=== PATIENT | male | born 1985 | race Caucasian/White ===

== ENCOUNTER 2017-04-17 01:13 | Inpatient (IN) | payer BC ==
[2017-04-17] MEDS ORDERED: NORMAL SALINE 1000 ML 1,000 ML IV ONE ×2 (01:57→03:10)
[2017-04-17] MEDS ORDERED: LORAZEPAM INJ 2 MG/1 ML VIAL IV ONE ×2 (02:01→03:08)
--- NOTE | 2017-04-17 02:43 | RADIOLOGY REPORT (SQ) ---
EXAM DESCRIPTION: CT HEAD WITHOUT COMPLETED DATE/TIME: 04/17/2017 2:29 am REASON FOR STUDY: headache, altered mental state COMPARISON: None. TECHNIQUE: Axial images acquired through the brain without intravenous contrast. Images reviewed wi th bone, brain and subdural windows. Images stored on PACS. All CT scanners at this facility use dose modulation, iterative reconstruction, and/or weight based d osing when appropriate to reduce radiation dose to as low as reasonably achievable (ALARA). [facility]: Dose Right [facility]: CareDose [facility]: Dose Right [facility]: Teradose 4D [facility]: Smart SSEV RADIATION DOSE: Up-to-date CT equipment and radiation dose reduction techniques were employed. CTDIv ol: 55.3 mGy. DLP: 996 mGy-cm. mGy. LIMITATIONS: None. FINDINGS: VENTRICLES: Normal size and contour. CEREBRUM: No masses. No hemorrhage. No midline shift. Normal duarte/white matter differentiation. N o evidence for acute infarction. CEREBELLUM: No masses. No hemorrhage. No alteration of density. No evidence for acute infarction. EXTRAAXIAL SPACES: No fluid collections. No masses. ORBITS AND GLOBE: No intra- or extraconal masses. Normal contour of globe without masses. CALVARIUM: No fracture. PARANASAL SINUSES: No fluid or mucosal thickening. SOFT TISSUES: No mass or hematoma. OTHER: No other significant finding. IMPRESSION: NORMAL BRAIN CT WITHOUT CONTRAST. TECHNICAL DOCUMENTATION: JOB ID: [id number] Quality ID # [id number]: Final reports with documentation of one or more dose reduction techniques (e.g., Au tomated exposure control, adjustment of the mA and/or kV according to patient size, use of iterative reconstruction technique) 2010 [employer]- All Rights Reserved
[2017-04-17 02:44] LABS: ALANINE AMINOTRANSFERASE 43 U/L (21-72); ALBUMIN 4.7 g/dL (3.5-5.0); ALKALINE PHOSPHATASE 83 U/L (38-126); ANION GAP 16 (5-19); ASPARTATE AMINO TRANSFERASE 31 U/L (17-59); BILIRUBIN,DIRECT 0.4 mg/dL (0.0-0.4); BILIRUBIN,TOTAL 0.5 mg/dL (0.2-1.3); BLOOD UREA NITROGEN 19 mg/dL (7-20); CALCIUM 9.6 mg/dL (8.4-10.2); CARBON DIOXIDE 25 mmol/L (22-30); CHLORIDE 102 mmol/L (98-107); CREATININE RESULT 1.52 mg/dL (0.52-1.25); GLUCOSE 150 mg/dL (75-110); POTASSIUM 3.7 mmol/L (3.6-5.0); SODIUM 142.5 mmol/L (137-145); TOTAL PROTEIN 7.4 g/dL (6.3-8.2)
[2017-04-17 02:45] LABS: ALCOHOL < 10 mg/dL (NONE DETECTED)
[2017-04-17 03:14] LABS: ABSOLUTE LYMPHOCYTES (AUTO) 2.7 10^3/uL (0.5-4.7); ABSOLUTE MONOCYTES (AUTO) 0.7 10^3/uL (0.1-1.4); ABSOLUTE NEUT (AUTO) 6.6 10^3/uL (1.7-8.2); BASOPHILS % (AUTO) 0.2 % (0-2); HEMATOCRIT 47.7 % (37.9-51.0); HEMOGLOBIN 16.2 g/dL (13.5-17.0); HGB HCT DIFFERENCE 0.9; LYMPHOCYTES % (AUTO) 26.8 % (13-45); MEAN CORPUSCULAR HEMOGLOBIN 28.7 pg (27.0-33.4); MEAN CORPUSCULAR VOLUME 84 fl (80-97); MONOCYTES % (AUTO) 7.3 % (3-13); RED BLOOD COUNT 5.65 10^6/uL (4.35-5.55); RED CELL DISTRIBUTION WIDTH 12.6 % (11.5-14.0); SEGMENTED NEUTROPHILS % (AUTO) 65.7 % (42-78)
--- NOTE | 2017-04-17 04:14 | ER Document Report ---
ED General - General Chief Complaint: Altered Mental Status Stated Complaint: AMS Time Seen by Provider: 04/17/17 01:40 Mode of Arrival: Ambulatory Information source: Patient, Parent Cannot obtain history due to: Altered mental status TRAVEL OUTSIDE OF THE [place] IN LAST 30 DAYS: No - HPI Notes: Patient is a 32-year-old male presents emergency department with report that he previously was hooked on narcotic pain medications, then was switched to Suboxone about 3 years ago, more recently switched to Butrans patch, which he abruptly stopped from a 10 mg patch 1 week ago to nothing instead of starting the recommended 5 mg patch. the patient also cut back on his Klonopin dosing, but admits to taking additional Phenergan up to 4 tablets at a time to try to control some of his symptoms. After stopping the Butrans patch, the patient had someVomiting and diarrhea, but this is since resolved. Patient denies suicidal or homicidal ideation. Family became concerned that he was acting appropriately and they brought him in for evaluation. The patient has active hallucinations and cannot control his flight of ideas and nonsensical speech. Patient denies chest pain or shortness of breath or abdominal pain or nausea, but he admits to previous headache. - Related Data Allergies/Adverse Reactions: No Known Allergies Allergy (Unverified 03/18/15 08:03) Past Medical History - Social History Smoking Status: Never Smoker Frequency of alcohol use: None Drug Abuse: Prescription drugs Lives with: Alone Family History: Reviewed & Not Pertinent - Past Medical History Cardiac Medical History: Reports: Hx Hypertension Renal/ Medical History: Denies: Hx Peritoneal Dialysis - Immunizations Hx Diphtheria, Pertussis, Tetanus Vaccination: No Review of Systems - Review of Systems Notes: REVIEW OF SYSTEMS: CONSTITUTIONAL : Denies fever, chills, or sweats. Denies recent illness. EENT: Denies eye, ear, throat, or mouth pain or symptoms. Denies nasal or sinus congestion or discharge. Denies throat, tongue, or mouth swelling or difficulty swallowing. CARDIOVASCULAR: Denies chest pain. Denies palpitations or racing or irregular heart beat. Denies ankle edema. RESPIRATORY: Denies cough, cold, or chest congestion. Denies shortness of breath, difficulty breathing, or wheezing. GASTROINTESTINAL: Denies abdominal pain or distention. Denies blood in vomitus , stools, or per rectum. Denies black, tarry stools. Denies constipation. GENITOURINARY: Denies difficulty urinating, painful urination, burning, frequency, blood in urine, or discharge. MUSCULOSKELETAL: Denies back or neck pain or stiffness. Denies joint pain or swelling. SKIN: Denies rash, lesions or sores. HEMATOLOGIC : Denies easy bruising or bleeding. LYMPHATIC: Denies swollen, enlarged glands. NEUROLOGICAL: Denies passing out or loss of consciousness. Denies weakness or paralysis or loss of use of either side. Denies problems with gait or speech. Denies sensory loss, numbness, or tingling. Denies seizures. Reports prior headache, currently denies any headache. PSYCHIATRIC: Denies anxiety or stress. Denies depression, suicidal ideation, or homicidal ideation. ALL OTHER SYSTEMS REVIEWED AND NEGATIVE. Dictation was performed using [employer] voice recognition software Physical Exam - Vital signs Vitals: Resp Pulse Ox 11 L 98 04/17/17 01:25 04/17/17 01:25 - Notes Notes: PHYSICAL EXAMINATION: GENERAL:, Appears to be responding to internal stimuli. But slightly dilated disoriented HEAD: Atraumatic, normocephalic. EYES: Pupils equal round and reactive to light going from 5-4 mm with light, extraocular movements intact, sclera anicteric, conjunctiva are normal. ENT: Nares patent, oropharynx clear without exudates. Mucous membranes are very dry. NECK: Normal range of motion, supple without lymphadenopathy. No meningismus. Tachycardic LUNGS: Breath sounds clear to auscultation bilaterally and equal. No wheezes rales or rhonchi. HEART: Rate ranging from 120-145 is depending upon patient is engaged in conversation. ABDOMEN: Soft, nontender, nondistended abdomen. No guarding, no rebound. No masses appreciated. Musculoskeletal: Normal range of motion, no pitting or edema. No cyanosis. NEUROLOGICAL: Cranial nerves grossly intact. Patient is hyper alert and appears to be responding to some internal stimuli. He answers questions inappropriately and trails off and to unrelated conversation with apparent flight of ideas. Normal sensory, motor exams. Ataxic gait. PSYCH: Some disorientation with flight of ideas. Flat affect overall. SKIN: Warm, Dry, normal turgor, no rashes or lesions noted. Skin is very dry. Course - Re-evaluation Re-evalutation: 04/17/17 04:30 Patient was given 2 mg of IV Ativan and was given 1 L normal saline bolus. His blood pressure improved and his heart rate improved. He still had disorganized thoughts. Head CT was negative, and lab studies showed a slight elevation of creatinine, most likely secondary to dehydration. Additional 2 mg of Ativan was given with additional 1 L normal saline bolus with further improvement. Patient briefly was able to sleep and would awaken with nonsensical talk again. Patient had no neck stiffness or suspicion for meningismus on exam, and findings bit more so with an anticholinergic toxidrome most likely from Phenergan. Also consider narcotic withdrawal state versus benzo withdrawal state, given the very minimal response of 4 mg of IV Ativan over short period of time. Discussion was undertaken with the patient and his family and they were in agreement with admission for further evaluation and management. Discussion was undertaken with Dr. Jones and he agreed to admit the patient. 04/17/17 04:32 - Vital Signs Vital signs: Temp Pulse Resp BP Pulse Ox 14 158/106 H 98 04/17/17 04:08 04/17/17 04:08 04/17/17 04:08 - Laboratory Result Diagrams: 04/17/17 01:28 04/17/17 01:28 Laboratory results interpreted by me: 04/17/17 04/17/17 01:28 01:28 RBC 5.65 H Creatinine 1.52 H Est GFR (Non-Af Amer) 54 L Glucose 150 H Critical Care Note - Critical Care Note Total time excluding time spent on procedures (mins): 45 Discharge - Discharge Clinical Impression: Opioid withdrawal, Benzodiazepine withdrawal, Psychosis, Poisoning by parasympatholytic drug Condition: Stable Disposition: ADMITTED INPATIENT Admitting Provider: Hospitalist Unit Admitted: ICU
[2017-04-17 04:39] LABS: URINE BARBITURATES SCREEN NEGATIVE; URINE METHADONE SCREEN NEGATIVE; URINE OPIATES LOW UNCONFIRMED POSITIVE; URINE PHENCYCLIDINE SCREEN NEGATIVE
[2017-04-17 04:40] LABS: APPEARANCE,URINE CLEAR; BILIRUBIN,URINE NEGATIVE (NEGATIVE); GLUCOSE, URINE NEGATIVE (NEGATIVE); KETONES,URINE NEGATIVE (NEGATIVE); LEUKOCYTE ESTERASE,URINE NEGATIVE (NEGATIVE); NITRITE,URINE NEGATIVE (NEGATIVE); PROTEIN,URINE NEGATIVE (NEGATIVE); URINE SPECIFIC GRAVITY 1.013; UROBILINOGEN,URINE NEGATIVE mg/dL (<2.0)
[2017-04-17] MEDS ORDERED: NORMAL SALINE 1000 ML 1,000 ML IV PRN (05:39)
[2017-04-17] MEDS ORDERED: THIAMINE HCL INJ 200 MG/2 ML VIAL ONE (05:39)
[2017-04-17] MEDS ORDERED: THIAMINE HCL 100 MG in NORMAL SALINE 50 ML IV ONE (05:45)
[2017-04-17] MEDS ORDERED: ENALAPRILAT DIHYDRATE INJ/PF 1.25 MG/1 ML SDV IV PRN (05:56)
[2017-04-17] MEDS ORDERED: POTASSI CL 20 MEQ/50 ML RIDER 20 MEQ/50 ML RTUPB IV ONE (06:00)
[2017-04-17 06:06] LABS: ADD ON TESTING BLD IN LAB ACKNOWLEDGE
[2017-04-17] MEDS ORDERED: PROMETHAZINE HCL 25 MG TABLET PO PRN (06:11)
[2017-04-17 06:16] LABS: CREATINE KINASE 276 U/L (55-170)
[2017-04-17 06:36] LABS: PROTHROMBIN TIME 13.7 SEC (11.4-15.4)
[2017-04-17 06:37] LABS: PARTIAL THROMBOPLASTIN TIME 27.4 SEC (23.5-35.8)
--- NOTE | 2017-04-17 06:50 | PDOC H&P ---
History of Present Illness Admission Date/PCP: 04/17/17 05:22 PCP None Patient complains of: Altered mental status History of Present Illness: PEDRITO JANSEN is a 32 year old male with a history of narcotic addiction, having switched to Suboxone approximately 3 years ago. More recently , changed to Butrans patch. Approximately 1 week ago, instead of continuing his prescribed taper, he stopped with a 10 mg patch, not reducing to the 5 mg patch. Patient also reportedly cut back on his Klonopin dosing. When he developed symptoms of vomiting and diarrhea over the past 72 hours, he reportedly began taking extra Phenergan. Was noted by parents to be quite confused and was brought to the emergency room for further evaluation. Patient has been discussed with emergency room physician who evaluated the patient. Patient is globally disoriented, responding to basic questions with non sequitur flight of ideas, and basically nonsensical speech at times and is able to provide no history whatsoever in terms of acute or chronic events, review of systems, personal habits, family history, etc. parents are present and are somewhat helpful, although their information is limited, since patient does not live with them. No inpatient records available for review. no fever or chills. Mom does state he developed a mild headache over the last day or so, and has had a number of episodes of vomiting and diarrhea over the past 3 days, but the vomiting and diarrhea has been decreasing with time. No further information available this point in time. According to the emergency room physician, patient was noted to be rather tachycardic, into the 130 and 140 range upon arrival, but pulse rate has decreased with treatment, including IV fluid and Ativan. Patient also noted to have hypertensive urgency, with high blood pressure 169/ 117. Laboratory results are listed in [employer] and are reviewed. X-ray summary results are listed below, with full report(s) reviewed. . EKG reviewed. No prior EKG available for comparison. Social history/personal habits: Single. No children. 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 No tobacco use. Occasional alcohol; parents uncertain exactly how much. Reportedly no illicit drug use. No known drug allergies. Home medications initially autopopulated into [id number] may not accurately reflect patient's true medications, dosages, and/or frequencies. food technologist to reconcile medications. Unfortunately, parents not certain of all medications/dosages/frequencies. REVIEW OF SYSTEMS: See history and present illness. No further information available this point in time. PHYSICAL EXAMINATION: 68 kg. Height is not recorded on the chart. 98% saturation on room air. Blood pressure 145/99. Pulse 99 and regular. Respirations are 24 and unlabored. Temperature not recorded on chart; skin feels normothermic. Well-nourished well-developed young male appearing approximately his stated age. Initially awake and alert and fairly anxious, although no val agitation. As my exam was completing, he did become a bit more drowsy. Parents are present at his side. Skin is warm and dry, not flushed. No grossly obvious evidence of rash in areas of skin examined. No subcutaneous nodules palpated. ENT: Hearing grossly normal to normal conversation. Tongue midline on protrusion pink and tacky. No crusting of lips. No matos sign. Eyes: No scleral icterus. Pupils equal and reactive to light at 6 mm. [place] conjunctivae. No raccoon eyes. Neck is supple and nontender to gentle active range of motion and palpation. Midline trachea. No palpable thyroid nodule mass enlargement or tenderness. Lymphatic: No palpable cervical or clavicular nodes. Neck and lymphatic exams limited by patient body habitus. Psychiatric: Not able to be adequately evaluated. See history and present illness. Lungs: Auscultation reveals clear and equal breath sounds bilaterally. No use of accessory respiratory muscles. Cardiovascular: Heart regular rate and rhythm, without gallop murmur or rub. No carotid or abdominal aortic bruits. No ankle or pedal edema. Palpable dorsalis pedis pulses. Abdomen:soft slightly distended nontender with occasional bowel sounds. Unable to adequately evaluate abdomen for masses or organomegaly due to distention. Extremities: Hands and feet are warm and dry. No calf tenderness to compression. No grossly obvious visual evidence of calf swelling. Gentle manipulation of lower extremities fails to reveal any obvious evidence of injury or instability to knees hips or ankles. Neurologic: Moves all 4 extremities grossly normally. Patellar reflexes absent. Absent Babinski. Light touch cannot be adequately evaluated due to his current status. No rigidity. No ankle clonus. No nystagmus. Past Medical History Past Medical History: Information from review of records along with discussion with parents. Cardiac Medical History: Reports: Hypertension Denies: Congestive Heart Failure, DVT, Myocardial Infarction, Hyperlipidema, Pulmonary Embolism Pulmonary Medical History: Denies: Asthma, Chronic Obstructive Pulmonary Disease (COPD), Sleep Apnea EENT Medical History: Denies: Eyes, Ears, Throat Neurological Medical History: Denies: Hemorrhagic CVA, Ischemic CVA, Seizures Endocrine Medical History: Denies: Diabetes Mellitus Type 1, Diabetes Mellitus Type 2, Hyperthyroidism, Hypothyroidism Renal/ Medical History: Reports: None GI Medical History: Reports: Gastroesophageal Reflux Disease - Mild Denies: Cirrhosis, Hepatitis, Peptic Ulcer Disease Musculoskeltal Medical History: Denies: Arthritis Skin Medical History: Reports: None Psychiatric Medical History: Reports: Depression, General Anxiety Disorder, Other - History of narcotic addiction Denies: Alcohol Dependency, Substance Abuse, Tobacco Dependency Hematology: Reports: None Infectious Medical History: Denies: Clostridium Difficile, Hepatitis B, Hepatitis C, Methicillin- Resistant Staph Aureus Past Surgical History Past Surgical History: Reports: Other - [place] teeth extraction Social History Information Source: Parent, Emergency Med Personnel, [facility] Records Smoking Status: Unknown if Ever Smoked Frequency of Alcohol Use: Occasional Drugs: None - per mother. Hx Prescription Drug Abuse: Yes - Advance Directive Resuscitation Status: Full Code Surrogate healthcare decision maker:: Parents Family History Family History: Reviewed & Not Pertinent Parental Family History Reviewed: Yes - Parents are hypertensive Children Family History Reviewed: NA Sibling(s) Family History Reviewed.: Yes - Brother is healthy Medication/Allergy Home Medications: Ergocalciferol (Vitamin D2) [Drisdol 50,000 unit (1.25MG) Capsule] 50,000 units PO PARDO@1000 04/17/17 Sumatriptan Succinate [Imitrex 100 mg Tablet] 100 mg PO DAILYP PRN 04/17/17 Testosterone Cypionate [Depo-Testosterone] 200 mg IM [id number] 04/17/17 Tramadol HCl [Tramadol HCl ER] 300 mg PO QAM 04/17/17 Clonazepam [Klonopin 2 mg Tablet] 2 mg PO Q8HP PRN #0 04/18/17 Gabapentin 400 mg PO Q6HP PRN #30 capsule 04/18/17 Lisinopril 40 mg PO DAILY #30 tablet 04/18/17 Ondansetron HCl [Zofran 4 mg Tablet] 1 tab PO Q8 PRN #30 tablet 04/18/17 Allergies/Adverse Reactions: No Known Allergies Allergy (Unverified 03/18/15 08:03) Physical Exam Vital Signs: Temp Pulse Resp BP Pulse Ox 14 158/106 H 98 04/17/17 04:08 04/17/17 04:08 04/17/17 04:08 Results Impressions: Head CT 04/17/17 01:57 IMPRESSION: NORMAL BRAIN CT WITHOUT CONTRAST. Assessment & Plan - Diagnosis (1) Hypertensive urgency Is this a current diagnosis for this admission?: YesPlan: Gradual blood pressure reduction with as needed enalaprilat. Vital sign parameters listed in chart. (2) Acute encephalopathy Is this a current diagnosis for this admission?: YesPlan: Patient discussed in detail by phone at 6 AM the morning of the fourth with Dr. Haney, on-call sole conforming machine operator at [place] [facility]. She feels his overall clinical picture is likely due to Phenergan abuse, with possibly addition of gabapentin, and/or Klonopin withdrawal. Supportive care recommended at this point in time. She also recommended finding out his previous Klonopin dosage and consider restarting him on this. As needed Ativan. ICU admission, since we're not completely sure exactly what medication he has been taking. IVC papers drawn up. Suicide precautions, until more information is available and patient has been evaluated by psych. Parents aware psychiatric consult is pending. Of note, Dr. Haney did not feel the Butrans patch would be responsible for the positive opiates on his toxicology screen. Knee high SCDs for DVT prophylaxis, along with subcutaneous Lovenox. Impression and plans were discussed with parents, who agree. Discussion with parents prior to my telephone discussion with Dr. Haney of [place] [facility]. Time spent in evaluation and management of patient: 80 critical-care minutes. After my initial evaluation of patient, and after I had left the emergency room and was involved in the care of another patient, I was contacted by patient's emergency room nurse concerning mother's questions about decision to proceed with IVC status. I discussed with mother in layperson's terms by phone rationale for IVC status. She accepted this well. (3) DVT prophylaxis Is this a current diagnosis for this admission?: Yes (4) Substance abuse Is this a current diagnosis for this admission?: Yes - Inpatient Certification Based on my medical assessment, after consideration of the patient's comorbidities, presenting symptoms, or acuity I expect that the services needed warrant INPATIENT care.: Yes I certify that my determination is in accordance with my understanding of Medicare's requirements for reasonable and necessary INPATIENT services [42 CFR 412.3e].: Yes Medical Necessity: Need Close Monitoring Due to Risk of Patient Decompensation, Need For IV Fluids, Need For Continuous Telemetry Monitoring, Risk of Diagnosis Which Will Require Inpatient Eval/Care/Monitoring Post Hospital Care: D/C or Transfer Summary
[2017-04-17 08:13] LABS: ANION GAP 9 (5-19); BLOOD UREA NITROGEN 15 mg/dL (7-20); CALCIUM 8.6 mg/dL (8.4-10.2); CARBON DIOXIDE 25 mmol/L (22-30); CHLORIDE 108 mmol/L (98-107); CREATINE KINASE 197 U/L (55-170); GLUCOSE 80 mg/dL (75-110); POTASSIUM 4.1 mmol/L (3.6-5.0); SODIUM 141.5 mmol/L (137-145)
--- NOTE | 2017-04-17 10:20 | EKG REPORT ---
SEVERITY:- BORDERLINE ECG - SINUS TACHYCARDIA BORDERLINE T ABNORMALITIES, INFERIOR-LATERAL LEADS : Confirmed by: Burt Toscano MD 17-Apr-2017 10:19:50
[2017-04-17] MEDS: ENOXAPARIN SODIUM INJ 40 MG/0.4 ML DISP.SYRIN SUBCUT SCH (11:53)
[2017-04-17] MEDS: NORMAL SALINE 1000 ML 1,000 ML IV PRN ×2 (11:56→20:22)
--- NOTE | 2017-04-17 12:17 | PDOC PROGRESS REPORT ---
Subjective Progress Note for:: 04/17/17 Subjective:: At the time of my exam the patient was not responsive. By 12:00 he was awake alert asking for food. Physical Exam Vital Signs: Temp Pulse Resp BP Pulse Ox 98.2 F 83 12 109/77 97 04/17/17 08:00 04/17/17 08:00 04/17/17 10:41 04/17/17 10:41 04/17/17 10:41 Intake & Output 04/16/17 04/17/17 04/18/17 06:59 06:59 06:59 Weight 96 kg General appearance: PRESENT: no acute distress Eye exam: PRESENT: conjunctiva pink. ABSENT: scleral icterus Mouth exam: PRESENT: moist, tongue midline Neck exam: ABSENT: JVD Respiratory exam: PRESENT: clear to auscultation leigh ann. ABSENT: rales, rhonchi, wheezes Cardiovascular exam: PRESENT: RRR. ABSENT: diastolic murmur, rubs, systolic murmur GI/Abdominal exam: PRESENT: normal bowel sounds, soft. ABSENT: distended, guarding, mass, organolmegaly, rebound, tenderness Extremities exam: ABSENT: calf tenderness, clubbing, pedal edema Neurological exam: ABSENT: awake Psychiatric exam: PRESENT: other - Unable to assess secondary to sedation Skin exam: PRESENT: dry, intact, warm. ABSENT: cyanosis, rash Results Laboratory Results: 04/17/17 07:44 04/17/17 07:44 Sodium 141.5 Potassium 4.1 Chloride 108 H Carbon Dioxide 25 Anion Gap 9 BUN 15 Creatinine 1.20 Est GFR ( Amer) > 60 Est GFR (Non-Af Amer) > 60 Glucose 80 Calcium 8.6 04/17/17 07:44 Creatine Kinase 197 H Impressions: Head CT 04/17/17 01:57 IMPRESSION: NORMAL BRAIN CT WITHOUT CONTRAST. Assessment & Plan - Diagnosis (1) Acute encephalopathy Is this a current diagnosis for this admission?: YesPlan: Most likely was secondary to medications. The patient had taken Klonopin as well as Phenergan. When I saw him at 8 AM he was unresponsive however by lunchtime he was awake asking for food. We will continue to monitor overnight and hopefully be able to discharge home tomorrow if he is no longer at risk to himself (2) Hypertensive urgency Is this a current diagnosis for this admission?: YesPlan: His blood pressures have improved. (3) Substance abuse Is this a current diagnosis for this admission?: YesPlan: The patient has been trying to wean off of narcotics. - Time Time Spent with patient: 25-34 minutes - Inpatient Certification Medical Necessity: Need Close Monitoring Due to Risk of Patient Decompensation
[2017-04-17] MEDS: LORAZEPAM INJ 2 MG/1 ML VIAL IV PRN ×3 (13:03→23:15)
--- NOTE | 2017-04-17 17:13 | ER Document Report ---
ED Psych Disorder / Suicide - General Chief Complaint: Altered Mental Status Stated Complaint: AMS Time Seen by Provider: 04/17/17 01:40 Mode of Arrival: Ambulatory Information source: Patient, Parent, [facility] Records Notes: Patient presents as a 32 year old male for disorientation, hallucinations, confusion, bizarre behavior. He arrived via EMS and LE. Patient was found at a carry out [employer] restaurant presenting the above symptoms and employee notified law enforcement. LE spoke with patient's parents and had EMS transport patient to the hospital for evaluation. Patient reports that he was at the grocery store earlier that same evening and saw some "unruly people" in the store purchasing alcohol so he exited the store and followed "the people " to see if they were drunk driving at which point his stated plan was to call the police. Patient states that he found himself in a "non desirable neighborhood" while following the car, then he reports that he apparently made a wrong turn ending up in even a worse neighborhood. Patient reports that the next thing he remembers was pacing in the parking lot of a pizza place. He states then he remembers being in the hospital. He has a positive toxicology for opioids. Patient admits to having an opioid use disorder originating from a back injury seven years ago. He state that he was on buphrenorphine for three years and has discontinued the medication approximately two weeks ago. He is also prescribed two different benzodiazipines for anxiety. Patient denies using any illicit substances and speculates that his disorientation may have come from post withdrawal. Patient presents as cooperative at times and defensive at times. Patient spent considerable time engaging in conversation with this promotion writer that may convince his mother that he has not recently used substances. Patient aggressively denies opioids in his system and requested being re-tested. Patient thought process appears goal directed. Patient has brief periods of disorientation and flight of ideas requiring redirection. Collateral: Mother present in ICU for a portion of the assessment. She is concerned that the patient was in the neighborhood to obtain drugs. He has a history of substance use disorders. Impression/Plan: Patient is cleared from psychiatric services. Patient has likely suffered from hallucinations and delusions /bizarre behavior as a result of recent substance use and / or withdrawal. Patient's story of following strangers to see if they were intoxicated, then becoming lost in a bad neighborhood is seemingly fantastical, not as a delusion, rather as an explanation as to his whereabouts when encountered by LE. Patient is currently engaged with substance abuse services managing his suboxone, benzodiazipines, and counseling. He would like to remain with his current provider. He was provided crisis phone numbers and instructions on their use. Consulted with Dr. Keith regarding the care and management of the patient. Diagnosis: Substance or medication induced psychotic disorder Opioid use disorder severe, on replacement therapy Patient is discharged from psychiatric services, pending medical clearance, unless reevaluation ordered. TRAVEL OUTSIDE OF THE [place] IN LAST 30 DAYS: No - HPI Patient complains to provider of: Bizarre behavior, Hallucinating Onset: Just prior to arrival Onset was: Cannot confirm Suicide Risk Factors: Depressed, Substance abuse Associated symptoms: Flat affect, Flight of ideas, Restlessness - Related Data Allergies/Adverse Reactions: No Known Allergies Allergy (Unverified 03/18/15 08:03) Home Medications: Current Home Medications Buprenorphine [Butrans] 1 patch TOP PARDO@1000 04/17/17 [History] Clonazepam [Klonopin 2 mg Tablet] 2 mg PO Q8HP PRN 04/17/17 [History] Ergocalciferol (Vitamin D2) [Drisdol 50,000 unit (1.25MG) Capsule] 50,000 units PO PARDO@1000 04/17/17 [History] No Home Medications 04/17/17 [History] Promethazine HCl 50 mg PO Q6HP PRN 04/17/17 [History] Sumatriptan Succinate [Imitrex 100 mg Tablet] 100 mg PO DAILYP PRN 04/17/17 [ History] Temazepam [Restoril] 30 mg PO HSP PRN 04/17/17 [History] Testosterone Cypionate [Depo-Testosterone] 200 mg IM [id number] 04/17/17 [History] Tramadol HCl [Tramadol HCl ER] 300 mg PO QAM 04/17/17 [History] Past Medical History - General Information source: Patient, Parent - Social History Smoking Status: Never Smoker Frequency of alcohol use: None Drug Abuse: Prescription drugs Lives with: Alone Family History: Reviewed & Not Pertinent - Past Medical History Cardiac Medical History: Reports: Hx Hypertension Denies: Hx Congestive Heart Failure, Hx DVT, Hx Heart Attack, Hx Hypercholesterolemia, Hx Pulmonary Embolism Pulmonary Medical History: Denies: Hx Asthma, Hx COPD, Hx Sleep Apnea EENT Medical History: Denies: Eyes, Ears, Throat Neurological Medical History: Denies: Hx Seizures Endocrine Medical History: Denies: Hx Diabetes Mellitus Type 1, Hx Diabetes Mellitus Type 2, Hx Hyperthyroidism, Hx Hypothyroidism Renal/ Medical History: Reports: None. Denies: Hx Peritoneal Dialysis GI Medical History: Reports: Hx Gastroesophageal Reflux Disease - Mild. Denies : Hx Cirrhosis, Hx Hepatitis Musculoskeltal Medical History: Denies Hx Arthritis Skin Medical History: Reports None Psychiatric Medical History: Reports: Hx Depression, Other - History of narcotic addiction Infectious Medical History: Denies: Hx C-Diff, Hx Hepatitis, Hx MRSA Past Surgical History: Reports: Other - [place] teeth extraction - Immunizations Hx Diphtheria, Pertussis, Tetanus Vaccination: No History of Pneumococcal Vaccine: Unknown Review of Systems - Review of Systems Neurological/Psychological: Confusion, Suicidal ideation - denied Physical Exam - Vital signs Vitals: Resp Pulse Ox 11 L 98 04/17/17 01:25 04/17/17 01:25 Course - Vital Signs Vital signs: Temp Pulse Resp BP Pulse Ox 97.5 F 79 16 130/91 H 99 04/17/17 15:16 04/17/17 15:16 04/17/17 15:16 04/17/17 15:16 04/17/17 15:16 - Laboratory Result Diagrams: 04/17/17 01:28 04/17/17 07:44 Laboratory results interpreted by me: 04/17/17 04/17/17 04/17/17 01:28 01:28 01:28 RBC 5.65 H Creatinine 1.52 H Est GFR (Non-Af Amer) 54 L Glucose 150 H Creatine Kinase 276 H Salicylates < 1.0 L Acetaminophen < 10 L Discharge - Discharge Clinical Impression: Narcotic withdrawal, Benzodiazepine withdrawal, Psychosis, Anticholinergic syndrome, Substance abuse Condition: Stable Disposition: ADMITTED INPATIENT
--- NOTE | 2017-04-17 20:15 | EKG REPORT ---
SEVERITY:- BORDERLINE ECG - SINUS TACHYCARDIA BORDERLINE T ABNORMALITIES, ANTERIOR LEADS : Confirmed by: Burt Toscano MD 17-Apr-2017 20:14:40
[2017-04-18] MEDS: NORMAL SALINE 1000 ML 1,000 ML IV PRN ×2 (01:22→06:01)
[2017-04-18] MEDS: LORAZEPAM INJ 2 MG/1 ML VIAL IV PRN ×3 (01:22→08:51)
[2017-04-18 06:56] LABS: ABSOLUTE LYMPHOCYTES (AUTO) 3.3 10^3/uL (0.5-4.7); ABSOLUTE MONOCYTES (AUTO) 0.7 10^3/uL (0.1-1.4); ABSOLUTE NEUT (AUTO) 2.6 10^3/uL (1.7-8.2); BASOPHILS % (AUTO) 0.5 % (0-2); EOSINOPHILS % (AUTO) 0.1 % (0-6); HEMATOCRIT 40.4 % (37.9-51.0); LYMPHOCYTES % (AUTO) 50.4 % (13-45); MEAN CORPUSCULAR HEMOGLOBIN 28.8 pg (27.0-33.4); MEAN CORPUSCULAR HGB CONC 34.3 g/dL (32.0-36.0); MEAN CORPUSCULAR VOLUME 84 fl (80-97); MONOCYTES % (AUTO) 9.9 % (3-13); RED BLOOD COUNT 4.82 10^6/uL (4.35-5.55); RED CELL DISTRIBUTION WIDTH 12.8 % (11.5-14.0); SEGMENTED NEUTROPHILS % (AUTO) 39.1 % (42-78); WHITE BLOOD COUNT 6.5 10^3/uL (4.0-10.5)
[2017-04-18 07:05] LABS: HEMOGLOBIN 13.8 g/dL (13.5-17.0)
[2017-04-18 07:10] LABS: ALANINE AMINOTRANSFERASE 36 U/L (21-72); ALBUMIN 3.8 g/dL (3.5-5.0); ALKALINE PHOSPHATASE 80 U/L (38-126); ANION GAP 9 (5-19); ASPARTATE AMINO TRANSFERASE 22 U/L (17-59); BILIRUBIN,DIRECT 0.3 mg/dL (0.0-0.4); BILIRUBIN,TOTAL 0.3 mg/dL (0.2-1.3); BLOOD UREA NITROGEN 12 mg/dL (7-20); CARBON DIOXIDE 25 mmol/L (22-30); CHLORIDE 110 mmol/L (98-107); GLUCOSE 74 mg/dL (75-110); POTASSIUM 4.1 mmol/L (3.6-5.0); SODIUM 143.6 mmol/L (137-145); TOTAL PROTEIN 6.4 g/dL (6.3-8.2)
[2017-04-18] MEDS: ENOXAPARIN SODIUM INJ 40 MG/0.4 ML DISP.SYRIN SUBCUT SCH (09:23)
[2017-04-18 10:46] VITALS: BP 155/82
--- NOTE | 2017-04-18 14:44 | PDOC DISCHARGE SUMMARY ---
General - Admit/Disc Date/PCP Admission Date/Primary Care Provider: 04/17/17 05:27 Discharge Date: 04/18/17 - Discharge Diagnosis (1) Acute encephalopathy Is this a current diagnosis for this admission?: YesSummary: Likely secondary to medications possibly Phenergan interacting with Klonopin. (2) Hypertensive urgency Is this a current diagnosis for this admission?: Yes (3) Substance abuse Is this a current diagnosis for this admission?: Yes - Additional Information Resuscitation Status: Full Code Discharge Diet: Regular Discharge Activity: Activity As Tolerated Home Medications: Ergocalciferol (Vitamin D2) [Drisdol 50,000 unit (1.25MG) Capsule] 50,000 units PO PARDO@1000 04/17/17 Sumatriptan Succinate [Imitrex 100 mg Tablet] 100 mg PO DAILYP PRN 04/17/17 Testosterone Cypionate [Depo-Testosterone] 200 mg IM [id number] 04/17/17 Tramadol HCl [Tramadol HCl ER] 300 mg PO QAM 04/17/17 Clonazepam [Klonopin 2 mg Tablet] 2 mg PO Q8HP PRN #0 04/18/17 Gabapentin 400 mg PO Q6HP PRN #30 capsule 04/18/17 Lisinopril 40 mg PO DAILY #30 tablet 04/18/17 Ondansetron HCl [Zofran 4 mg Tablet] 1 tab PO Q8 PRN #30 tablet 04/18/17 History of Present Illness History of Present Illness: PEDRITO JANSEN is a 32 year old male history of narcotic addiction who was on Suboxone started 3 years ago. The patient recently switched to a Butrans patch. One week prior to presentation the patient stopped his 10 mg patch and also cut back on his Klonopin. Over the 72 hours prior to admission he began to develop vomiting and diarrhea and took extra Phenergan. The patient was confused and brought into the emergency room is admitted with encephalopathy. Hospital Course Hospital Course: 32-year-old male who was admitted with encephalopathy. [place] most likely be secondary to medication in the form of Klonopin and Phenergan. The patient by his report had been off of his Butrans patch for 1 week prior to presentation. He developed nausea and vomiting and took extra Phenergan. Patient was initially admitted into the intensive care unit for close observation and he was IVC'd. Patient overnight had improvement in his mental status and was back to normal. I discussed with the patient the risk of mixing his medications. I have recommended that the patient avoid all narcotics and wean off of his Klonopin. I also have recommended that he stop taking Phenergan for nausea and use Zofran because there would be less problems with interactions. I have recommended that he cut his Klonopin dose to 2 mg q. 83 days then decrease to 1 mg q. 83 days then decrease to 0.5 mg every 8 hours. I have asked him to follow-up with his primary care doctor to consider further weaning down from that dose and hopefully get off of the Klonopin altogether. I discussed with the patient the possibility of using antipsychotics for his anxiety as there would be less problems with addiction. Has been using clonidine as needed for his blood pressure as well as withdrawal symptoms and I have asked him to stop using clonidine altogether and just take lisinopril for blood pressure. Physical Exam Vital Signs: Temp Pulse Resp BP Pulse Ox 97.7 F 64 14 155/82 H 100 04/18/17 10:42 04/18/17 10:42 04/18/17 10:42 04/18/17 10:42 04/18/17 10:42 Intake & Output 04/17/17 04/18/17 04/19/17 06:59 06:59 06:59 Intake Total 4374 Output Total 2675 Balance 1699 Weight 95.6 kg General appearance: PRESENT: no acute distress Eye exam: PRESENT: conjunctiva pink. ABSENT: scleral icterus Mouth exam: PRESENT: moist, tongue midline Neck exam: ABSENT: JVD Respiratory exam: PRESENT: clear to auscultation leigh ann. ABSENT: rales, rhonchi, wheezes Cardiovascular exam: PRESENT: RRR. ABSENT: diastolic murmur, rubs, systolic murmur GI/Abdominal exam: PRESENT: normal bowel sounds, soft. ABSENT: distended, guarding, mass, organolmegaly, rebound, tenderness Extremities exam: ABSENT: calf tenderness, clubbing, pedal edema Neurological exam: PRESENT: alert, awake, oriented to person, oriented to place , oriented to time, oriented to situation, CN II-XII grossly intact. ABSENT: motor sensory deficit Psychiatric exam: PRESENT: appropriate affect Skin exam: PRESENT: dry, intact, warm. ABSENT: cyanosis, rash Results Laboratory Results: 04/18/17 06:34 04/18/17 06:34 04/18/17 04/18/17 06:34 06:34 WBC 6.5 RBC 4.82 Hgb 13.8 D Hct 40.4 MCV 84 MCH 28.8 MCHC 34.3 RDW 12.8 Plt Count 184 Seg Neutrophils % 39.1 L Lymphocytes % 50.4 H Monocytes % 9.9 Eosinophils % 0.1 Basophils % 0.5 Absolute Neutrophils 2.6 Absolute Lymphocytes 3.3 Absolute Monocytes 0.7 Absolute Eosinophils 0.0 Absolute Basophils 0.0 Sodium 143.6 Potassium 4.1 Chloride 110 H Carbon Dioxide 25 Anion Gap 9 BUN 12 Creatinine 1.10 Est GFR ( Amer) > 60 Est GFR (Non-Af Amer) > 60 Glucose 74 L Calcium 9.0 Total Bilirubin 0.3 AST 22 ALT 36 Alkaline Phosphatase 80 Total Protein 6.4 Albumin 3.8 04/17/17 07:44 Creatine Kinase 197 H Impressions: Head CT 04/17/17 01:57 IMPRESSION: NORMAL BRAIN CT WITHOUT CONTRAST. Qualifiers PATEINT BEING DISCHARGED WITH ANY OF THE FOLLOWING DIAGNOSIS?: No Plan Discharge Plan: Discharged to home. Follow up with his primary care doctor in 2 weeks. Time Spent: Greater than 30 Minutes
== END 2017-04-18 11:30 | disposition home or self-care (01) | DRG 917 ==
LOC: ER 01:13 → EH 05:22 → UNDOADMIN 05:22 → EH 05:27 → ICU 07:10 → 3W 22:51
PROVIDERS: ADMIT Family Medicine; ATTEND Family Medicine
DX: T42.4X1A Poisoning by benzodiazepines, accidental (unintentional), initial encounter (principal); G92 Toxic encephalopathy; T42.6X1A Poisoning by other antiepileptic and sedative-hypnotic drugs, accidental (unintentional), initial encounter; I16.0 Hypertensive urgency; F11.10 Opioid abuse, uncomplicated; F41.9 Anxiety disorder, unspecified; I10 Essential (primary) hypertension; Z79.899 Other long term (current) drug therapy; Y92.481 Parking lot as the place of occurrence of the external cause
CPT/HCPCS: 36415; 70450; 80048; 80053; 80307; 81001; 82550; 83735; 84443; 84484; 85025; 85610; 85730; 93005; 93010; 96374; 96376; 99291; J1650; J2060; J3411; J3480; J7030

== ENCOUNTER → 2017-07-13 | Outpatient (CLI) | payer BC ==
[2017-07-13 18:57] LABS: CHLAM PCR NOT DETECTED (NOT DETECT)
== END ==
LOC: OD 15:42
PROVIDERS: ATTEND Nurse Practitioner Acute Care
DX: R30.0 Dysuria (principal)
CPT/HCPCS: 87491; 87591

== ENCOUNTER 2017-12-10 21:51 | Emergency (ER) | payer SELFPAY ==
--- NOTE | 2017-12-10 22:14 | ER Document Report ---
ED General - General Stated Complaint: ALTERED MENTAL STATUS Time Seen by Provider: 12/10/17 22:05 Notes: Patient is a 32-year-old male that comes by EMS for chief complaint of possible overdose and altered mental status. 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 Patient is prescribed temazepam and Klonopin, mother denied any other home medications at this time. He does have a history of overdose in the past was hospitalized once for this before. Patient denies any alcohol, any recreational drugs, states he did not take more than his prescribed dose of his medications. Patient denies any current complaints other than feeling really tired. TRAVEL OUTSIDE OF THE [place] IN LAST 30 DAYS: No - Related Data Allergies/Adverse Reactions: No Known Allergies Allergy (Unverified 03/18/15 08:03) Past Medical History - General Information source: Patient - Social History Smoking Status: Current Some Day Smoker Frequency of alcohol use: Occasional Drug Abuse: None, Prescription drugs Lives with: Family Family History: Reviewed & Not Pertinent - Past Medical History Cardiac Medical History: Reports: Hx Hypertension Denies: Hx Congestive Heart Failure, Hx DVT, Hx Heart Attack, Hx Hypercholesterolemia, Hx Pulmonary Embolism Pulmonary Medical History: Denies: Hx Asthma, Hx COPD, Hx Sleep Apnea Neurological Medical History: Denies: Hx Seizures Endocrine Medical History: Denies: Hx Diabetes Mellitus Type 1, Hx Diabetes Mellitus Type 2, Hx Hyperthyroidism, Hx Hypothyroidism Renal/ Medical History: Denies: Hx Peritoneal Dialysis GI Medical History: Reports: Hx Gastroesophageal Reflux Disease - Mild. Denies : Hx Cirrhosis, Hx Hepatitis Musculoskeltal Medical History: Denies Hx Arthritis Psychiatric Medical History: Reports: Hx Depression Infectious Medical History: Denies: Hx C-Diff, Hx Hepatitis, Hx MRSA Past Surgical History: Reports: Other - [place] teeth extraction - Immunizations Hx Diphtheria, Pertussis, Tetanus Vaccination: No Review of Systems - Review of Systems Constitutional: See HPI EENT: No symptoms reported Cardiovascular: No symptoms reported Respiratory: No symptoms reported Gastrointestinal: No symptoms reported Genitourinary: No symptoms reported Male Genitourinary: No symptoms reported Musculoskeletal: No symptoms reported Skin: No symptoms reported Hematologic/Lymphatic: No symptoms reported Neurological/Psychological: See HPI Physical Exam - Vital signs Vitals: Temp Pulse Resp BP Pulse Ox 97.3 F 94 16 150/89 H 100 12/10/17 21:52 12/10/17 21:52 12/10/17 21:52 12/10/17 21:52 12/10/17 21:52 Interpretation: Normal - General General appearance: Lethargic In distress: None - HEENT Head: Normocephalic, Atraumatic Eyes: Normal Conjunctiva: Normal Extraocular movements intact: Yes Eyelashes: Normal Pupils: PERRL Mouth/Lips: Normal Mucous membranes: Normal Pharynx: Normal Neck: Normal - Respiratory Respiratory status: No respiratory distress Chest status: Nontender Breath sounds: Normal. No: Decreased air movement, Wheezing - Cardiovascular Rhythm: Regular. No: Tachycardia Heart sounds: Normal auscultation, S1 appreciated, S2 appreciated Murmur: No - Abdominal Inspection: Normal Distension: No distension Bowel sounds: Normal Tenderness: Nontender. No: Tender, Guarding - Back Back: Normal, Nontender. No: Tender, Vertebra tenderness - Extremities General upper extremity: Normal inspection, Nontender, Normal ROM, Normal strength General lower extremity: Normal inspection, Nontender, Normal ROM, Normal strength - Neurological Neuro grossly intact: Yes Cognition: Normal Orientation: Disoriented to time, Disoriented to events. 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 Patient is awake but his sluggish, he acts tired but he is not severely lethargic. Patient slightly bizarre, playing with the curtains beside his bed and staring up at them. Cranial nerves intact, other than some confusion he is neurologically intact. 12/10/17 22:35 Because the patient just contacted the hospital and told us that they found pills of amphetamine/dextromethorphan 10 mg tablets and Phenergan in patient's position when she might have taken. The bottle did not have a count so there is no certain amount the patient might have taken. 12/10/17 23:20 Patient sleeping, arousable, not significantly changed. Cousin at bedside, states that he is not on temazepam but she thinks he actually might still have Subutex to take although patient denied this. CBC unremarkable, chemistry shows mildly low glucose in the 70s, creatinine is very slightly elevated, LFTs are normal. Alcohol, salicylates, Tylenol negative. 12/11/17 00:10 Patient reevaluated, remains sleepy but arousable, when he is aroused he is confused and unsure where he is, however when told he becomes oriented and begins to respond appropriately. He denies headache, he denies any complaints currently other than feeling like he needs to urinate really badly. He provided a urine sample. 12/11/17 Urine showing positive drug screen positive for benzodiazepines and amphetamines , both are accounted for. Also likely to Phenergan. Patient remains arousable , protecting his airway, however he is to sedated to leave at this time. Patient will be reevaluated he is more alert and will discuss in detail. 12/11/17 Parents came to bedside, patient awoke and approved speaking to them about his drug screen and condition although he remains very tired and falls immediately back to sleep. Still too drowsy discharge. Still protecting airway. Discussed with parents, they leave their contact information and requested they be contacted if he worsens and becomes admitted, states for psychiatry, will needs to go home. 12/11/17 05:30 Patient became very alert now, he is awake, he ambulates without any difficulty , he is very oriented and conversational. He states he took several Klonopin, 2 mg, states he also took 1.5 tablets of Phenergan. He states that he was taken the Phenergan because he was nauseated because he gets reflux, states he took the Klonopin because he was getting anxious about his job. He states he thought he would be able to handle the amount and he was not trying to hurt himself, denies homicidal ideations as well. He states that he does get stressed out with his job, however he states that he understands it is dangerous to take the medications he took and he does not plan to take this again. He states he did not expect to be affected the way he was. Patient states that the amphetamine/dextromethorphan is an old prescription that he had from the past and he did not take any tonight. Patient states he does not want to stay and talk with psychiatry, he just wants to go home, sleep, and go back to work. I spoke to mother about patient's evaluation, condition, she asked for recommendations on detox programs and help, recommended [facility]. She denies concerns about him being suicidal or homicidal, however she states she just wants to help get off all medications completely. Discussed other concerns, she states she is ready to come pecan picker the patient and take him home. Patient is staying with his girlfriend, she will provide a ride. 12/11/17 06:00 Patient provided with Carafate for reflux symptoms intermittently as needed, on request. - Vital Signs Vital signs: Temp Pulse Resp BP Pulse Ox 97.3 F 94 16 150/89 H 100 12/10/17 21:52 12/10/17 21:52 12/10/17 21:52 12/10/17 21:52 12/10/17 21:52 - Laboratory Result Diagrams: 12/10/17 21:35 12/10/17 21:35 Laboratory results interpreted by me: 12/10/17 21:35 Creatinine 1.33 H Glucose 73 L Salicylates < 1.0 L Acetaminophen < 10 L Discharge - Discharge Clinical Impression: Medication side effects, Prescription drug abuse Condition: Stable Disposition: HOME, SELF-CARE Additional Instructions: Do not take more than the prescribed doses of your medications or these can have severe side effects that could even lead to . Follow-up closely with your provider for additional evaluation and management. Return to the emergency department for any concerning symptoms or if something is not right. Prescriptions: Sucralfate [Carafate 1 gm Tablet] 1 gm PO QID #20 tablet Forms: Return to Work
[2017-12-10 22:16] LABS: ABSOLUTE EOSINOPHILS # (AUTO) 0.1 10^3/uL (0.0-0.6); ABSOLUTE MONOCYTES (AUTO) 0.6 10^3/uL (0.1-1.4); ABSOLUTE NEUT (AUTO) 3.5 10^3/uL (1.7-8.2); BASOPHILS % (AUTO) 0.5 % (0-2); EOSINOPHILS % (AUTO) 1.5 % (0-6); HEMATOCRIT 41.5 % (37.9-51.0); HEMOGLOBIN 14.6 g/dL (13.5-17.0); LYMPHOCYTES % (AUTO) 41.2 % (13-45); MEAN CORPUSCULAR HEMOGLOBIN 29.7 pg (27.0-33.4); MEAN CORPUSCULAR HGB CONC 35.2 g/dL (32.0-36.0); MEAN CORPUSCULAR VOLUME 84 fl (80-97); MONOCYTES % (AUTO) 8.2 % (3-13); PLATELET COUNT 202 10^3/uL (150-450); RED BLOOD COUNT 4.92 10^6/uL (4.35-5.55); RED CELL DISTRIBUTION WIDTH 12.8 % (11.5-14.0); SEGMENTED NEUTROPHILS % (AUTO) 48.6 % (42-78); TOTAL CELLS COUNTED % (AUTO) 100 %; WHITE BLOOD COUNT 7.2 10^3/uL (4.0-10.5)
[2017-12-10 22:29] LABS: ALANINE AMINOTRANSFERASE 34 U/L (21-72); ALBUMIN 4.9 g/dL (3.5-5.0); ALKALINE PHOSPHATASE 68 U/L (38-126); ANION GAP 15 (5-19); ASPARTATE AMINO TRANSFERASE 39 U/L (17-59); BILIRUBIN,DIRECT 0.2 mg/dL (0.0-0.4); BILIRUBIN,TOTAL 0.5 mg/dL (0.2-1.3); BLOOD UREA NITROGEN 19 mg/dL (7-20); CALCIUM 9.9 mg/dL (8.4-10.2); CARBON DIOXIDE 28 mmol/L (22-30); CHLORIDE 100 mmol/L (98-107); GLUCOSE 73 mg/dL (75-110); POTASSIUM 3.9 mmol/L (3.6-5.0); SODIUM 142.6 mmol/L (137-145); TOTAL PROTEIN 7.1 g/dL (6.3-8.2)
[2017-12-10 22:34] LABS: ACETAMINOPHEN < 10 ug/mL (10-30); ALCOHOL < 10 mg/dL (NONE DETECTED); SALICYLATE < 1.0 mg/dL (2.0-20.0)
[2017-12-10] MEDS ORDERED: NORMAL SALINE 1000 ML 1,000 ML IV ONE (23:15)
[2017-12-11 00:31] LABS: APPEARANCE,URINE CLEAR; BILIRUBIN,URINE NEGATIVE (NEGATIVE); COLOR,URINE STRAW; GLUCOSE, URINE NEGATIVE (NEGATIVE); KETONES,URINE NEGATIVE (NEGATIVE); LEUKOCYTE ESTERASE,URINE NEGATIVE (NEGATIVE); NITRITE,URINE NEGATIVE (NEGATIVE); PROTEIN,URINE NEGATIVE (NEGATIVE); URINE SPECIFIC GRAVITY 1.006; UROBILINOGEN,URINE NEGATIVE mg/dL (<2.0)
[2017-12-11 00:45] LABS: URINE AMPHETAMINES SCREEN UNCONFIRMED POSITIVE; URINE BARBITURATES SCREEN NEGATIVE; URINE BENZODIAZEPINES SCREEN UNCONFIRMED POSITIVE; URINE COCAINE SCREEN NEGATIVE; URINE MARIJUANA (THC) SCREEN NEGATIVE; URINE METHADONE SCREEN NEGATIVE; URINE PHENCYCLIDINE SCREEN NEGATIVE
[2017-12-11] MEDS ORDERED: SUCRALFATE 1 GM TABLET PO ONE (05:40)
[2017-12-11 07:20] VITALS: BP 123/77
--- NOTE | 2017-12-11 08:02 | EKG REPORT ---
SEVERITY:- NORMAL ECG - SINUS RHYTHM : Confirmed by: Burt Toscano MD 11-Dec-2017 08:01:33
== END 2017-12-11 07:19 | disposition home or self-care (01) ==
LOC: ER 21:51
DX: R41.82 Altered mental status, unspecified (principal); F19.10 Other psychoactive substance abuse, uncomplicated; T42.4X5A Adverse effect of benzodiazepines, initial encounter; T42.6X5A Adverse effect of other antiepileptic and sedative-hypnotic drugs, initial encounter; F17.210 Nicotine dependence, cigarettes, uncomplicated
CPT/HCPCS: 93005; 99285; 96360; 36415; 80307 ×4; 85025; 80053; 81001; 93010; J7030